=== PATIENT | female | born 2000 | race Caucasian/White ===

== ENCOUNTER 2024-07-01 12:24 | Emergency (ER) | payer SELFPAY ==
[2024-07-01] MEDS ORDERED: HYDROCODONE/APAP 7.5/325 MG TAB ONE (13:22)
--- NOTE | 2024-07-01 14:06 | RAD REPORT ---
EXAMINATION: Wrist Right 3 View CLINICAL INDICATION: Female, 24 years old. Pain;Swelling RIGHT COMPARISON: No prior exam. FINDINGS: Distal radial impaction fracture with intra-articular extension. There is some disruption of the melvin cular surface. Ulnar styloid fracture. No malalignment/dislocation. No significant focal degenerative change. Other: n/a IMPRESSION: Distal radial impaction fracture with intra-articular extension. Ulnar styloid fracture. No dislocati on.
--- NOTE | 2024-07-01 14:29 | ER ---
Nurse's Notes [facility] Name: Eden Card Age: 24 yrs Sex: Female : 2000 Arrival Date: 07/01/2024 Time: 12:24 Bed 11 Private MD: Diagnosis: Distal radial impaction fracture with intra-articular extension, right;Ulnar styloid fracture, right Presentation: 07/01 12:41 Chief complaint: Patient states: slipped and fell, pt c/o right wrist pain. Coronavirus aa5 screen: At this time, the client does not indicate any symptoms associated with coronavirus-19. Ebola Screen: Patient denies travel to an Ebola-affected area in the 21 days before illness onset. Initial Sepsis Screen: Does the patient meet any 2 criteria? No. Patient's initial sepsis screen is negative. Does the patient have a suspected source of infection? No. Patient's initial sepsis screen is negative. Risk Assessment: Do you want to hurt yourself or someone else? Patient reports no desire to harm self or others. Onset of symptoms was July 01, 2024. 12:41 Acuity: EWA 3 aa5 12:41 Method Of Arrival: Ambulatory aa5 Triage Assessment: 14:30 General: Appears. Injury Description: swelling right forearm. 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 - Infectious Disease History:: Denies. - Social history:: Smoking status: Reported history of juuling and/or vaping. Screenin:46 [facility] ED Fall Risk Assessment (Adult) History of falling in the last 3 months, iw including since admission Yes- single mechanical fall (1 pt) Confusion or Disorientation No (0 pts) Intoxicated or Sedated No (0 pts) Impaired Gait No (0 pts) Mobility Assist Device Used No (0 pt) Altered Elimination No (0 pt) Score/Fall Risk Level 0 - 2 = Low Risk Oriented to surroundings, Maintained a safe environment. Abuse screen: Denies threats or abuse. Nutritional screening: No deficits noted. Tuberculosis screening: No symptoms or risk factors identified. Assessment: 13:45 General: Appears uncomfortable, Behavior is cooperative. Pain: Complains of pain in iw right arm and right wrist. Neuro: Level of Consciousness is awake, alert, obeys commands, Moves all extremities. Full function. Cardiovascular: Patient's skin is warm and dry. Respiratory: Respiratory effort is even, unlabored, Respiratory pattern is regular. Derm: Skin is intact, is healthy with good turgor. Musculoskeletal: Range of motion: limited in right wrist Swelling present in right wrist. Vital Signs: 12:41 BP 129 / 68; Pulse 54; Resp 18 S; Temp 97.1(TE); Pulse Ox 100% on R/A; Weight 108.86 kg aa5 (R); Height 5 ft. 6 in. (R); 12:41 Body Mass Index 38.74 (108.86 kg, 167.64 cm) aa5 ED Course: 12:25 Patient arrived in ED. im 12:30 Griselda Dennison PA-C is PHCP. sb4 12:30 Nacho Gonzalez MD is Attending Physician. sb4 12:41 Arm band placed on. aa5 12:42 Triage completed. aa5 13:24 Claudia Gordon, RN is Primary Nurse. iw 13:35 Wrist Right 3 View XRAY In Process Unspecified. EDMS 13:45 Patient has correct armband on for positive identification. iw 13:46 Patient did not have IV access during this emergency room visit. iw 15:00 Provided Education on: splint care . iw 15:00 Orthoglass splint: Sugar tong splint applied on right arm. iw 15:17 No provider procedures requiring assistance completed. iw Administered Medications: 13:37 Drug: Hydrocodone-Acetaminophen PO (7.5 mg-325 mg) 1 tabs PO once Route: PO; iw 14:30 Follow up: Response: No adverse reaction; Pain is decreased iw Medication: 13:45 VIS not applicable for this client. iw Outcome: 14:28 Discharge ordered by . sb4 15:14 Discharged to home ambulatory, with family, iw 15:14 Condition: good 15:14 Discharge instructions given to patient, Instructed on discharge instructions, follow up and referral plans. medication usage, Demonstrated understanding of instructions, follow-up care, medications, Prescriptions given X 1, 15:15 Patient left the ED. iw Signatures: Dispatcher [employer] EDMS Claudia Gordon, RN RN Cindy Salas RN RN aa5 Griselda Dennison PA-C PAKristal sb4 Bernice Mayer Corrections: (The following items were deleted from the chart) 12:42 12:41 Resp 18bpm; Spontaneous; Pulse Ox 100% RA; Temp 97.1F Temporal; 108.86 kg aa5 Reported; Height 5 ft. 6 in. Reported; BMI: 38.7; aa5
--- NOTE | 2024-07-01 14:29 | EDPHYS ---
Physician Documentation [facility] Name: Eden Card Age: 24 yrs Sex: Female : 2000 Arrival Date: 07/01/2024 Time: 12:24 Bed 11 Private MD: ED Physician Nacho Gonzalez HPI: 07/01 13:17 This 24 yrs old Female presents to ER via Ambulatory with complaints of wrist Injury - sb4 right. 13:18 The patient or guardian reports decreased range of motion, injury, pain, swelling, sb4 tenderness. The complaints affect the right wrist diffusely. Context: The problem was sustained at home, resulted from a fall, on an outstretched hand. Onset: The symptoms/episode began/occurred just prior to arrival. Modifying factors: The symptoms are alleviated by nothing, the symptoms are aggravated by movement. The patient has not experienced similar symptoms in the past. 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 - Infectious Disease History:: Denies. - Social history:: Smoking status: Reported history of juuling and/or vaping. ROS: 13:18 Constitutional: Negative for fever, chills, and weight loss, sb4 13:18 MS/extremity: Positive for injury or acute deformity, decreased range of motion, pain, swelling, of the right wrist, 13:18 All other systems are negative, Exam: 13:18 Hand exam: Exam is positive for decreased range of motion, injury, pain, swelling, sb4 tenderness, ROM: limited active range of motion, limited passive range of motion, Circulation is intact in all extremities. Pulses: are normal with no appreciated deficits, sensation intact. 13:18 ENT: Mucous membranes moist. Skin: Warm, dry with normal turgor. Normal color with no rashes, no lesions, and no evidence of cellulitis. 13:18 Constitutional: The patient appears alert, awake, in obvious pain, Vital Signs: 12:41 BP 129 / 68; Pulse 54; Resp 18 S; Temp 97.1(TE); Pulse Ox 100% on R/A; Weight 108.86 kg aa5 (R); Height 5 ft. 6 in. (R); 12:41 Body Mass Index 38.74 (108.86 kg, 167.64 cm) aa5 MDM: 12:32 Medical Screening Exam initiated sb4 13:39 Independent interpretation of the following test(s) in the Emergency Department X-Ray: sb4 My interpretation is My interpretation of the right wrist x-ray images is acute fracture of distal right. 14:27 Data reviewed: vital signs, nurses notes, radiologic studies, and as a result, I will sb4 discharge patient. Counseling: I had a detailed discussion with the patient and/or guardian regarding the historical points, exam findings, and any diagnostic results supporting the discharge/admit diagnosis, radiology results, the need for outpatient follow up, a orthopedic surgeon, to return to the emergency department if symptoms worsen or persist or if there are any questions or concerns that arise at home. 14:37 ED course: [facility] aware checked, no history. sb4 07/01 12:42 Order name: Wrist Right 3 View XRAY; Complete Time: 14:07 aa5 07/01 13:17 Order name: Ice pack; Complete Time: 13:37 sb4 07/01 14:18 Order name: Sugar Tong Forearm Splint; Complete Time: 15:05 sb4 Administered Medications: 13:37 Drug: Hydrocodone-Acetaminophen PO (7.5 mg-325 mg) 1 tabs PO once Route: PO; iw 14:30 Follow up: Response: No adverse reaction; Pain is decreased iw Disposition Summary: 07/01/24 14:28 Discharge Ordered Notes: Location: Home sb4 Problem: new sb4 Symptoms: are unchanged sb4 Condition: Stable sb4 Diagnosis - Distal radial impaction fracture with intra-articular extension, right sb4 - Ulnar styloid fracture, right sb4 Followup: sb4 - With: Private Physician - When: 2 - 3 days - Reason: Further diagnostic work-up, Recheck today's complaints, Re-evaluation by your physician Discharge Instructions: - Discharge Summary Sheet sb4 - Radial Fracture sb4 - Wrist Fracture Treated With ORIF sb4 Forms: - Prescription Opioid Use sb4 - Patient Portal Instructions sb4 - Leadership Thank You Letter sb4 Prescriptions: - acetaminophen-codeine 300-30 mg Oral tablet - take 1 tablet ORAL route every 6 hours as needed for pain; 15 tablet; Refills: sb4 0, Product Selection Permitted Signatures: Dispatcher [employer] EDClaudia Pate, RN RN Cindy Salas RN RN Griselda Márquez, AZEEM GANN sb4 Corrections: (The following items were deleted from the chart) 12:43 12:43 Wrist Right 3 View+[email or web address] ordered. EDMS EDMS
[2024-07-01 18:42] VITALS: BP 129/68; TEMP 97.1; O2SAT 100
== END 2024-07-01 15:15 | disposition home or self-care (01) ==
LOC: ER 12:24
PROC: 2W3CX1Z Immobilization of Right Lower Arm using Splint (ICD-10-PCS; principal; 2024-07-01)
DX: S52.571A Other intraarticular fracture of lower end of right radius, initial encounter for closed fracture (principal); S52.611A Displaced fracture of right ulna styloid process, initial encounter for closed fracture
CPT/HCPCS: 99283